=== PATIENT | female | born 1955 | race Caucasian/White ===

== ENCOUNTER 2021-04-01 12:53 | Day surgery (SDC) | payer OTHER, SELFPAY ==
[2021-04-01 13:05] VITALS: BMI 38.3
--- NOTE | 2021-04-01 13:25 | HO.ANESPROP2 ---
HPI - Anesthesia Eval Consult details Narrative: 65 F for EGD PE in 2011 , polycythemia vera , Morbid obesity PMF Active Problems Active Problems: All Active Problems (Updated 04/01/21 @ 13:08 by Sailaja Danielle RN) Bullous pemphigoid (Acute) Past Medical History Medical History (Updated 04/01/21 @ 13:08 by Sailaja Danielle RN) CAP (community acquired pneumonia) Gout Polycythemia Pulmonary embolism Venous thromboembolism Functional capacity: independent ambulation Family History Family history of problems with anesthesia: No Surgical History Surgical History (Updated 04/01/21 @ 13:02 by Sailaja Danielle RN) History of hysterectomy Hx of tonsillectomy History of Problems with Anesthesia: No Social History Social History Patient Tobacco Use Status: Former Tobacco user Tobacco use type: Cigarette Use of substances other than those prescribed or required for medical reasons: No Are you DNR?: No Advance Directives: No Advance Directives Information Provided: Yes Recently lost weight without trying: No Nutrition Risks: No Nutritional Risk Patient : No Meds Allergies Allergy/AdvReac Type Severity Reaction Status Date / Time warfarin [From Coumadin] Allergy Rash Verified 01/14/21 14:25 Home Medications Medication Instructions Recorded Confirmed Last Taken Type allopurinol 100 mg tablet 200 mg PO DAILY 01/14/21 Unknown History aspirin 81 mg tablet,delayed 81 mg PO DAILY 01/14/21 Unknown History release (Adult Aspirin Regimen) hydroxyurea 500 mg capsule PO 01/14/21 Unknown History rivaroxaban 20 mg tablet (Xarelto) 20 mg PO DAILY 01/14/21 03/29/21 History vit C 250 mg-vit E 90 mg-zinc 40 1 tab PO BID 01/14/21 Unknown History mg-copper 1 [id number] capsule (PreserVision AREDS-2) Exam Exam Date and Time: April 01, 2021 1325 Height,Weight and Vital Signs: Height 5 ft 11 in Weight 124.738 kg Airway Mallampati Class: III Neck ROM: Full Loose/Missing/Broken Teeth: Yes (Chipped , cap upper left . ) Heart: rrr Lungs: bl breath sounds Assessment and Plan Assessment Anesthesia Assessment: Anesthesia Plan Discussed Final Anesthetic Review Family History of Problems with Anesthesia: No History of Problems with Anesthesia: No NPO: Yes ASA Class: III Final Preanesthetic Review: Consent Obtained/Reviewed and Anes Risks/Benef Reviewed Patient Risk: Intermediate Procedure Risk: Intermediate Anesthetic Plan Anesthetic Plan: MAC: Disposition: Standard PACU
[2021-04-01 13:26] VITALS: BP 157/96; PULSE 76; RESP 16; TEMP 36.4; O2SAT 98
[2021-04-01] MEDS: Lactated Ringers 1,000 ML 80 ML IVCONT (13:40)
--- NOTE | 2021-04-01 13:59 | MHC.SHP ---
Pre-Procedural Eval Section A Date of Service: 04/01/21 Section B Chief Complaint: abnormal imaging Details of Present Illness: outside CT scan with incidental finding of stomach lesion Relevant Family History (Specify if Yes): No Relevant Social History: None Present Medications: see Short Stay Collaborative assessment Medical History: Significant History (polycythemia, DVT, PE, ) History of Previous Operations: Relevant previous surgery/procedure and date(s) (hysterectomy, ) Allergies: Allergies Allergy/AdvReac Type Severity Reaction Status Date / Time warfarin [From Coumadin] Allergy Rash Verified 01/14/21 14:25 Review of Systems Sugical H&P ROS: Negative: Constitution, Cardiovascular, Respiratory, Neurological, Psychiatric, Hem-Onc, Allergic/Immunologic, Gastrointestinal, Genitourinary, Musculoskeletal, Integumentary, Endocrine and Eyes/Ears/Nose/Throat Exam Surgical H&P Exam: Normal: HEENT, Normal: Heart, Normal: Lungs, Normal: Extremities, Normal: Abdomen, Normal: Skin and Normal: Neurological Plan Diagnosis/Plan: Unchanged I have reviewed the history and physical and performed a pertinent physical examination on my patient. No changes have occurred unless specified. EGD for assessment of lesion in stomach
--- NOTE | 2021-04-01 14:01 | P.BOP_ITS ---
Brief Operative Note Date of Service: 04/01/21 Pre-op diagnosis: stomach lesion Post-op diagnosis: same Surgeon: Debbi Colunga MD Was an Doughnut Machine Operator Helper used for this Procedure?: No Estimated blood loss (mL): 5
--- NOTE | 2021-04-01 14:02 | W.PM.OPN ---
Operative Note Operative Note Date of Service: 04/01/21 Narrative: Procedure Description: EGD FLEXIBLE TRANSORAL UPPER GASTROINTESTINAL ENDOSCOPY UPPER ENDOSCOPY Consent: Indications for the procedure and potential complications of bleeding, perforation, reaction to medications and missed diagnosis were discussed with the patient and informed consent was obtained. Instrument: Olympus GIF H 190 J mid size upper endoscope Monitoring: Vital signs and clinical assessment, continuous EKG monitoring, Pulse oximetry, Carbon Dioxide monitoring and blood pressure monitoring were done throughout the procedure. Procedure: The patient was placed in the left lateral decubitis position and pre-procedure medications were administered and a bite block was placed. The endoscope was inserted into the mouth and advanced under direct vision to the third part of duodenum. A careful inspection was made as the upper endoscope was withdrawn including a retroflexed examination of the proximal stomach; Findings and interventions are described below. Findings: Larynx:normal Esophagus: GE junction at 38 cm, diaphragm hiatus at 38 cm, mild esophagitis Stomach: localized gastric erythema with superficial erosive changes in mid body, bx taken looked like pill gastritis. Grade 2 flap valve on retroflexed examination of the cardia. In the antral area there was a 2 cm submucosal prominence. Tunnel biopsies were taken and one clip applied to close defect. The lesion was soft and not hard. Duodenum: mild duodenitis, bx taken Intervention: Biopsies as noted above Impression/Findings: submucosal lesion, ddx: lipoma, leiomyoma, GIST PLAN: await biopsies, suspect will need EUS and biopsy to check for C-kit mutation restart xarelto in 48 hours -ok to continue aspirin
[2021-04-01 14:45] VITALS: BP 106/56; PULSE 81; RESP 14; TEMP 36.1; O2SAT 96
[2021-04-01 15:00] VITALS: BP 136/60; PULSE 73; RESP 16; O2SAT 97
== END 2021-04-01 15:30 | disposition home or self-care (01) ==
PROVIDERS: PCP Family Medicine; Visit Provider Internal Medicine Gastroenterology
PROC: 0DJ08ZZ Inspection of Upper Intestinal Tract, Via Natural or Artificial Opening Endoscopic (ICD-10-PCS; CPT 43235; principal; 2021-04-01 14:20)
DX: K29.60 Other gastritis without bleeding (principal); K29.80 Duodenitis without bleeding; K20.80 Other esophagitis without bleeding; D45 Polycythemia vera; E66.01 Morbid (severe) obesity due to excess calories; K44.9 Diaphragmatic hernia without obstruction or gangrene; L12.0 Bullous pemphigoid; M10.9 Gout, unspecified; Z86.711 Personal history of pulmonary embolism; Z86.718 Personal history of other venous thrombosis and embolism; Z79.01 Long term (current) use of anticoagulants; Z79.82 Long term (current) use of aspirin; Z87.01 Personal history of pneumonia (recurrent); Z79.899 Other long term (current) drug therapy; Z88.8 Allergy status to other drugs, medicaments and biological substances; Z87.891 Personal history of nicotine dependence
CPT/HCPCS: 43239; 88305; 88342; J2250

== ENCOUNTER 2021-05-18 08:12 | Outpatient (REF) | payer OTHER, SELFPAY ==
[2021-05-18 08:45] LABS: MANUAL DIFF FLAG NO
[2021-05-18 08:57] LABS: Basophils Absolute Auto 0.1 X10*3/uL (0.0-0.2); Basophils Percent Auto 0.9 % (0-2); Eosinophils Absolute Auto 0.1 X10*3/uL (0.0-0.4); Eosinophils Percent Auto 2.2 % (0-4); Hematocrit 44.5 % (37.0-47.0); Hemoglobin 14.7 g/dl (12.0-16.0); Imm Gran Abs Auto 0.03 X10*3/uL (0.00-0.03); Imm Gran Pct Auto 0.5 % (0.0-0.4); Lymphocytes Absolute Auto 0.8 X10*3/uL (1.2-4.9); Lymphocytes Percent Auto 14.6 % (20-40); Mean Corpuscular Hemoglobin 35.9 pg (27.0-33.0); Mean Corpuscular Volume 108.5 fL (80.0-98.0); Mean Platelet Volume 9.5 fL (9.4-12.3); Monocytes Absolute Auto 0.3 X10*3/uL (0.1-1.2); Monocytes Percent Auto 4.9 % (2-11); Neutrophils Absolute Auto 4.2 x10*3/uL (2.0-8.3); Neutrophils Percent Auto 76.9 % (45-73); Platelet Count 195 X10*3/uL (160-400); White Blood Count 5.5 X10*3/uL (4.8-10.8)
== END 2021-05-18 08:13 | disposition home or self-care (01) ==
LOC: HO.LAB 08:12
PROVIDERS: PCP Family Medicine; Visit Provider Student in an Organized Health Care Education/Training Program
DX: D45 Polycythemia vera (principal)
CPT/HCPCS: 36415; 85025

== ENCOUNTER 2021-09-01 07:05 | Outpatient (REF) | payer OTHER, SELFPAY ==
--- NOTE | ~2021-09-01 | MM_ITS ---
EXAMINATION: MM SCREENING DIGITAL BREAST TOMOSYNTHESIS, BILATERAL CLINICAL INFORMATION: Screening. Asymptomatic. Prior [id number]-rr-[id number] mammography currently unavailable. Family history breast cancer, sister. The lifetime risk of breast cancer based on the Tyrer-Cuzick Model is 21%. COMPARISON: None. TECHNIQUE: Digital breast tomosynthesis is performed in both the craniocaudal and mediolateral oblique views along with computer-aided detection (CAD). Synthesized 2D images are generated from the tomosynthesis. Additional left CC and right MLO views are provided. FINDINGS: There are scattered areas of fibroglandular density (ACR BI-RADS breast composition Category b). There are no significant masses, abnormal calcifications, or other abnormalities. The axilla and skin contours are unremarkable. Radiology department staff will retrieve prior [id number]-[id number] mammography to allow for comparison in an addendum report. MM/MM tomosynthesis screening BI IMPRESSION: No mammographic evidence of malignancy. ASSESSMENT: BI-RADS 1: Negative RECOMMENDATION: 1. Routine annual mammography screening. 2. The lifetime risk of breast cancer based on the Tyrer-Cuzick Model is 21%. Additional annual adjunct screening with breast MRI may be of benefit in women with a risk score of 20% or greater. This patient's information was entered into a reminder system with a target due date for their next mammogram.
[2021-09-01 07:20] LABS: MANUAL DIFF FLAG NO
[2021-09-01 08:11] LABS: Basophils Absolute Auto 0.1 X10*3/uL (0.0-0.2); Basophils Percent Auto 0.7 % (0-2); Eosinophils Absolute Auto 0.2 X10*3/uL (0.0-0.4); Eosinophils Percent Auto 2.3 % (0-4); Hematocrit 44.2 % (37.0-47.0); Hemoglobin 14.6 g/dl (12.0-16.0); Imm Gran Abs Auto 0.03 X10*3/uL (0.00-0.03); Imm Gran Pct Auto 0.4 % (0.0-0.4); Lymphocytes Absolute Auto 0.8 X10*3/uL (1.2-4.9); Lymphocytes Percent Auto 11.5 % (20-40); Mean Corpuscular Hemoglobin 35.4 pg (27.0-33.0); Mean Corpuscular Volume 107.3 fL (80.0-98.0); Mean Platelet Volume 9.6 fL (9.4-12.3); Monocytes Absolute Auto 0.3 X10*3/uL (0.1-1.2); Monocytes Percent Auto 3.7 % (2-11); Neutrophils Absolute Auto 5.7 x10*3/uL (2.0-8.3); Neutrophils Percent Auto 81.4 % (45-73); Platelet Count 159 X10*3/uL (160-400); Red Blood Count 4.12 X10*6/uL (4.20-5.50); Red Cell Distribution Width 15.8 % (11.0-16.0)
[2021-09-01 08:33] LABS: Alanine Aminotransferase 25 U/L (0-31); Albumin Level 4.4 g/dL (3.5-5.0); Alkaline Phosphatase 110 U/L (39-117); Anion Gap 11 (12-20); Aspartate Amino Transferase 18 U/L (5-31); Bilirubin Total 1.1 mg/dL (0.0-1.0); Blood Urea Nitrogen 19 mg/dL (9-16); Calcium 9.4 mg/dL (8.4-10.2); Carbon Dioxide 29 mmol/L (22-29); Chloride 105 mmol/L (96-108); Cholesterol 161 mg/dL; Estimated Glomerular Filt Rate > 60; Glucose Random 117 mg/dL (60-115); HDL Cholesterol 40 mg/dL; LDL Cholesterol Calculated 93 mg/dl; Potassium 4.7 mmol/L (3.3-5.1); Sodium 140 mmol/L (135-145); Total Protein 6.8 g/dL (6.5-8.0); Triglycerides 143 mg/dL; Uric Acid 5.7 mg/dL (2.4-5.7)
[2021-09-01 08:53] LABS: Estimated Average Glucose 91 mg/dL; Hemoglobin A1c % 4.8 %
[2021-09-01 10:15] LABS: Reflex LDLD? No
== END 2021-09-01 07:06 | disposition home or self-care (01) ==
LOC: HO.MAMMO 07:05
PROVIDERS: Absent Provider Student in an Organized Health Care Education/Training Program; PCP Family Medicine; Visit Provider Family Medicine
DX: Z00.00 Encounter for general adult medical examination without abnormal findings (principal); Z12.31 Encounter for screening mammogram for malignant neoplasm of breast; D45 Polycythemia vera; Z87.39 Personal history of other diseases of the musculoskeletal system and connective tissue
CPT/HCPCS: 36415; 77063; 77067; 80053; 80061; 83036; 84550; 85025

== ENCOUNTER 2021-10-08 07:42 | Outpatient (REF) | payer OTHER, SELFPAY ==
[2021-10-08 07:54] LABS: MANUAL DIFF FLAG NO
[2021-10-08 08:53] LABS: Basophils Absolute Auto 0.1 X10*3/uL (0.0-0.2); Basophils Percent Auto 1.2 % (0-2); Eosinophils Absolute Auto 0.1 X10*3/uL (0.0-0.4); Eosinophils Percent Auto 1.3 % (0-4); Hematocrit 45.9 % (37.0-47.0); Hemoglobin 15.4 g/dl (12.0-16.0); Imm Gran Abs Auto 0.05 X10*3/uL (0.00-0.03); Imm Gran Pct Auto 0.5 % (0.0-0.4); Lymphocytes Absolute Auto 1.2 X10*3/uL (1.2-4.9); Lymphocytes Percent Auto 12.8 % (20-40); Mean Corpuscular HGB Conc 33.6 g/dl (31.0-35.0); Mean Corpuscular Hemoglobin 35.9 pg (27.0-33.0); Mean Platelet Volume 9.9 fL (9.4-12.3); Monocytes Absolute Auto 0.4 X10*3/uL (0.1-1.2); Monocytes Percent Auto 4.6 % (2-11); Neutrophils Absolute Auto 7.5 x10*3/uL (2.0-8.3); Neutrophils Percent Auto 79.6 % (45-73); Platelet Count 226 X10*3/uL (160-400); Red Blood Count 4.29 X10*6/uL (4.20-5.50); Red Cell Distribution Width 15.2 % (11.0-16.0); White Blood Count 9.4 X10*3/uL (4.8-10.8)
== END 2021-10-08 07:43 | disposition home or self-care (01) ==
LOC: HO.LABR 07:42
PROVIDERS: PCP Family Medicine; Visit Provider Student in an Organized Health Care Education/Training Program
DX: D45 Polycythemia vera (principal)
CPT/HCPCS: 36415; 85025

== ENCOUNTER 2021-11-10 08:03 | Outpatient (REF) | payer OTHER, SELFPAY | END 2021-11-10 08:04 | disposition home or self-care (01) | LOC: HO.BBR 08:03 | PROVIDERS: Visit Provider Student in an Organized Health Care Education/Training Program | DX: D45 Polycythemia vera (principal) | CPT/HCPCS: 85014; 85018; 99195 ==